=== PATIENT | male | born 1990 | race Caucasian/White ===

== ENCOUNTER → 2018-10-27 | Outpatient (CLI) | payer OTHER | LOC: COL.RAD 13:27 | DX: I87.1 Compression of vein (principal); R22.1 Localized swelling, mass and lump, neck | CPT/HCPCS: Q9967 ==

== ENCOUNTER → 2018-10-30 | Outpatient (CLI) | payer OTHER ==
[~2018-10-30] VITALS: Ht 177.8 cm; Wt 113.2 kg
[2018-10-30 09:00] VITALS: BP 144/95; PULSE 116
[2018-10-30 10:10] VITALS: BP 152/95; PULSE 95
== END ==
LOC: COL.RAD 08:49
DX: R59.0 Localized enlarged lymph nodes (principal); D72.829 Elevated white blood cell count, unspecified
CPT/HCPCS: 32108

== ENCOUNTER → 2018-11-16 | Outpatient (CLI) | payer SELFPAY | LOC: COL.VAS 13:28 | DX: Z01.810 Encounter for preprocedural cardiovascular examination (principal); C81.98 Hodgkin lymphoma, unspecified, lymph nodes of multiple sites; R18.8 Other ascites; I31.3 Pericardial effusion (noninflammatory); I51.7 Cardiomegaly ==

== ENCOUNTER 2018-11-20 08:06 | Day surgery (SDC) | payer OTHER ==
[~2018-11-20] VITALS: Ht 177.8 cm; Wt 104.0 kg
[2018-11-20] MEDS ORDERED: PREDNISONE20 MG PO (08:35)
[2018-11-20] MEDS ORDERED: ZYLOPRIM 300MG300 MG PO (08:35)
[2018-11-20] MEDS ORDERED: DAILY MULTIPLE1 T18 PO (08:36)
[2018-11-20 09:03] VITALS: BP 146/88; PULSE 100; TEMP 97.2
[2018-11-20 10:48] VITALS: BP 124/59; PULSE 86; TEMP 97.7
--- NOTE | 2018-11-20 10:48 | NUR ---
Patient arrives back to [facility] alert, denies nausea, reports some pain with muscle twitch in right shoulder, denies wanting pain medication. Patient monitor applied, vitals stable. Dressing clean/dry/intact. Dr Glover into talk with patient's spouse at this time.
[2018-11-20 11:00] VITALS: BP 126/76; PULSE 77
--- NOTE | 2018-11-20 11:05 | NUR ---
Patient tolerated juice and toast without any nausea. Vitals stable. Patient reports muscle twitch in right shoulder, pain 1/10, denies wanting any pain medication at this time. Patient reports that he is ready to go home.
[2018-11-20] MEDS ORDERED: NORCO 325 MG-51 TAB PO (11:10)
[2018-11-20 11:15] VITALS: BP 128/66; PULSE 83
--- NOTE | 2018-11-20 11:35 | NUR ---
Dismissal instructions gone over with patient and patient's spouse. Both verbalize understanding and all questions answered. Prescription given to patient's spouse.
--- NOTE | 2018-11-20 11:45 | NUR ---
Patient dismissed to patient enterance, to private vehicle spouse is driving. Patient and spouse thank staff for services.
== END 2018-11-20 11:45 | disposition home or self-care (01) ==
LOC: SDCO 08:06
DX: C81.92 Hodgkin lymphoma, unspecified, intrathoracic lymph nodes (principal); J90 Pleural effusion, not elsewhere classified; M54.5 Low back pain; Z82.49 Family history of ischemic heart disease and other diseases of the circulatory system
CPT/HCPCS: C1788; J0690; J1644; J2250; J2704; J3010; J7120

== ENCOUNTER 2018-11-23 02:48 | Observation (INO) | payer OTHER ==
[~2018-11-23] VITALS: Ht 177.8 cm; Wt 106.2 kg
[~2018-11-23 02:48] MED LIST: DAILY MULTIPLE1 T18 PO; NORCO 325 MG-51 TAB PO; PREDNISONE20 MG PO; ZYLOPRIM 300MG300 MG PO
[2018-11-23 03:29] LABS: HEMATOCRIT 45.4 % (42.0-52.0); HEMOGLOBIN 14.8 g/dl (13.5-18.0); MEAN CELL VOLUME 86 fl (80.0-100.0); MEAN CORPUSCULAR HEMOGLOBIN 28 pg (27.0-31.0); MEAN CORPUSCULAR HGB CONC 33 g/dl (33.0-37.0); MEAN PLATELET VOLUME 10.5 fl (7.4-10.4); PLATELET COUNT 318 K/mm3 (130-400); RED BLOOD COUNT 5.26 M/mm3 (4.20-5.60); REDCELL DISTRIBUTION WIDTH-CV 14.3 % (11.5-14.5)
[2018-11-23 03:39] LABS: ALBUMIN 4.1 gm/dL (3.5-5.0); BILIRUBIN,TOTAL 0.5 mg/dL (0.0-1.0); C-REACTIVE PROTEIN 2.4 mg/dL (0.0-0.9); CALCIUM 9.6 mg/dL (8.4-10.2); CREATININE, serum 1.22 (0.66-1.25); POTASSIUM 3.8 mmol/L (3.4-5.0); TOTAL PROTEIN 7.9 gm/dL (6.4-8.2)
[2018-11-23 03:46] LABS: BAND 4 % (0-10); EOSINOPHIL 13 % (0-4); LYMPHOCYTE 2 % (20.0-51.0); NEUTROPHILS 76 % (42.0-75.2); PLATELET ESTIMATE NORMAL (NORMAL)
[2018-11-23 07:56] LABS: COLLECTION METHOD CLEAN CATCH
--- NOTE | 2018-11-23 08:00 | NUR ---
PATIENT ARRIVED TO ROOM 323 FROM ED.
[2018-11-23 08:30] LABS: MUCOUS Present /lpf; PH 5 (5-8); SQUAMOUS EPITHELIAL 0-2 /hpf; URINE APPEARANCE Hazy; URINE BACTERIA None Seen /hpf; URINE BILIRUBIN Negative (NEGATIVE); URINE BLOOD 2+ (NEGATIVE); URINE CALCIUM OXALATE CRYSTAL Present /hpf; URINE COLOR Amber; URINE GLUCOSE Negative (NEGATIVE); URINE KETONE Negative (NEGATIVE); URINE LEUKOCYTE ESTERASE Negative (NEGATIVE); URINE NITRATE Negative (NEGATIVE); URINE PROTEIN(semi-quant) Negative (NEGATIVE); URINE RBC >50 /hpf; URINE UROBILINOGEN Negative (NEGATIVE)
[2018-11-23 08:35] VITALS: BP 132/72; PULSE 56; TEMP 98.3
[2018-11-23 09:08] VITALS: BP 132/72; PULSE 56; TEMP 98.3
--- NOTE | 2018-11-23 10:11 | NUR ---
MYKE met with the patient and patient's , Lori, to discuss discharge plan. The patient lives in [place] with his and a roommate. He reports independence with ADLs and does not use any DME. The patient receives primary care and his medications at [facility]. He reports no difficulties obtaining his meds. The patient does not have advanced directives, but he states that him and his are working on them. The patient plans to return home with his upon discharge. No additional needs at this time.
[2018-11-23 11:48] VITALS: BP 141/93; PULSE 64; TEMP 97.7
--- NOTE | 2018-11-23 12:00 | NUR ---
PATIENT IS A&O. VSS. BOWEL SOUNDS ACTIVE ALL FOUR QUADRANTS. PATIENT NPO FOR THORACENTESIS. PATIENT DENIES N/V AT THIS TIME. PATIENT STATES THAT HE ALWAYS FEELS SOB. ALL LEFT LUNG MCKINNEY CLEAR UPON AUSCULTATION. RIGHT UPPER LUNG FIELD CLEAR UPON AUSCULTATION. RIGHT MIDDLE AND LOWER LOBES DIMINISHED UPON AUSCULTATION. IV FLUIDS INFUSING TO LEFT AC VIA IV PUMP. CALL LIGHT WITHIN REACH. PATIENT DENIES ANY OTHER NEEDS AT THIS TIME.
--- NOTE | 2018-11-23 12:26 | NUR ---
PATIENT TAKEN FOR THORACENTESIS BY WHEELCHAIR. WILL WAIT FOR ARRIVAL BACK TO ROOM 323.
--- NOTE | 2018-11-23 13:19 | NUR ---
PATIENT ARRIVED BACK TO ROOM 323 VIA WHEELCHAIR FROM THORACENTESIS.
[2018-11-23 13:20] LABS: PLEURAL FLUID RBC 1000 /mm3 (0-0); PLEURAL FLUID WBC 853 /mm3
[2018-11-23 13:22] LABS: PLEURAL FLUID APPEARANCE CLEAR; PLEURAL FLUID COLOR YELLOW
[2018-11-23 13:26] LABS: TOTAL PROTEIN,PLEURAL FLUID 3.9 gm/dL
[2018-11-23 15:50] VITALS: BP 144/91; PULSE 69; TEMP 97.3
--- NOTE | 2018-11-23 19:45 | NUR ---
Pt. sitting up in bed watching TV at this time. Pt. is A&OX3, assessment complete. IV to lt. ac patent, IV fluids infusing per orders. Pt. denies pain at this time. Call light within reach.
[2018-11-24] VITALS (12 sets, daily range): BP systolic 119–146; BP diastolic 68–93; PULSE 49–79; TEMP 98–99.2
--- NOTE | 2018-11-24 05:58 | NUR ---
Pt. slept off and on through the night. Pt. reports pain to the abd that radiates to the lt. flank at a 8 on pain scale, gave pain meds per orders. Pt. denies further needs, call light within reach.
--- NOTE | 2018-11-24 08:00 | NUR ---
PATIENT IS SITTING UP IN BED IN HIS ON THE COMPUTER THIS MORNING. PATIENT IS A&OX4. BRADYCARDIA NOTED. VSS. BOWEL SOUNDS ACTIVE ALL FOUR QUADRANTS. PATIENT IS NPO FOR HIS PROCEDURE THIS AFTERNOON. PATIENT DENIES COMPLAINTS OF N/V. PATIENT STATES THAT HE FEELS WEAK, BUT NO MORE THAN HIS NORMAL. PATIENT HAS SOB WITH ACTIVITY. RIGHT LOWER LUNG LOBE DIMINISHED UPON AUSCULTATION. ALL OTHER LUNG MCKINNEY CLEAR UPON AUSCULTATION. PATIENT DENIES A PRODUCTIVE COUGH. BACK THORACENTESIS SITE DRESSED WITH A BANDAID AND IS CD&I. PORTACATH PLACEMENT SITE TO RIGHT CHEST WITH EDGES WELL APPROXIMATED AND STERI STRIPS IN PLACE, OTHERWISE INCISION IS APPLICATIONS SALES CONSULTANT WITH ECCHYMOSIS AROUND SITE NOTED. POSITIVE PEDAL PULSES EQUAL BILATERALLY. IV FLUIDS INFUSING TO LEFT AC IV VIA PUMP. CALL LIGHT WITHIN REACH. PATIENT DENIES ANY OTHER NEEDS AT THIS TIME.
[2018-11-24 08:02] LABS: HEMOGLOBIN 13.1 g/dl (13.5-18.0); MEAN CELL VOLUME 86 fl (80.0-100.0); MEAN CORPUSCULAR HEMOGLOBIN 28 pg (27.0-31.0); MEAN CORPUSCULAR HGB CONC 33 g/dl (33.0-37.0); MEAN PLATELET VOLUME 10.4 fl (7.4-10.4); RED BLOOD COUNT 4.68 M/mm3 (4.20-5.60); REDCELL DISTRIBUTION WIDTH-CV 14.4 % (11.5-14.5)
[2018-11-24 08:03] LABS: PLATELET COUNT 214 K/mm3 (130-400)
[2018-11-24 08:12] LABS: CALCIUM 8.5 mg/dL (8.4-10.2); CREATININE, serum 1.37 (0.66-1.25); MAGNESIUM 1.7 mg/dL (1.6-2.3); POTASSIUM 3.6 mmol/L (3.4-5.0)
[2018-11-24 08:51] LABS: BAND 8 % (0-10); EOSINOPHIL 32 % (0-4); LYMPHOCYTE 6 % (20.0-51.0); NEUTROPHILS 49 % (42.0-75.2)
[2018-11-24 08:52] LABS: PLATELET ESTIMATE NORMAL (NORMAL)
--- NOTE | 2018-11-24 10:38 | NUR ---
PATIENT CONSENT FORM SIGNED AND ON PATIENT CHART FOR PROCEDURE THIS AFTERNOON.
--- NOTE | 2018-11-24 12:18 | NUR ---
First visit from the garment finisher. No needs right now.
--- NOTE | 2018-11-24 14:19 | NUR ---
ALL PATIENT PRE-OP MEDICATIONS GIVEN. NS TO GRAVITY FLOW TUBING AND INFUSING TO LEFT AC IV. PATIENT TAKEN TO PERIOP VIA CART BY LAURITA COLLIER. WILL WAIT FOR PATIENT ARRIVAL BACK TO ROOM 323 POST-OP.
--- NOTE | 2018-11-24 16:25 | NUR ---
PATIENT ARRIVED BACK TO ROOM 323 VIA CART FROM PACU. PATIENT IS A&O. POST-OP VSS. TEMP OF 99.2 NOTED. PATIENT GIVEN 1 TABLET OF NORCO FOR ELEVATED TEMP AND PAIN. DINNER TRAY ORDERED. PRESENT AT THE BEDSIDE. CALL LIGHT WITHIN REACH. PATIENT DENIES ANY OTHER NEEDS AT THIS TIME.
--- NOTE | 2018-11-24 18:53 | NUR ---
REPORT GIVEN TO LAURITA BILLINGSLEY.
--- NOTE | 2018-11-24 19:48 | NUR ---
Resting in bed. Assessment complete. Right lower lobe diminished otherwise clear. Heart sounds normal. Bowels active x4. Pulses strong throughout. No edema noted. Throacentesis site covered with bandaide. Right chest port a cath bruising present. Steri strips in place and open to air. Left AC IV without complications. Reports 2/10 in left lower quad pain. Denies need for intervention at this time. Denies other needs. Call light in reach.
[2018-11-25] VITALS: BP 123/72; PULSE 46; TEMP 98.1
--- NOTE | 2018-11-25 01:00 | NUR ---
Resting in bed. Denies needs. Call light in reach.
[2018-11-25 03:41] VITALS: BP 125/69; PULSE 48; TEMP 98.3
--- NOTE | 2018-11-25 04:00 | NUR ---
Resting in bed. Denies needs. Denies pain. Call light in reach.
[2018-11-25 07:02] LABS: BASO % 0.2 % (0.0-2.0); EOS # 2.9 (0.0-0.7); EOS % 17.4 % (0-4.0); GRAN # 11.8 (1.4-6.5); GRAN % 71.5 % (42.2-75.2); HEMATOCRIT 42.5 % (42.0-52.0); HEMOGLOBIN 13.9 g/dl (13.5-18.0); LYMPH # 0.5 (1.2-3.4); LYMPH % 2.9 % (20.0-51.0); MEAN CELL VOLUME 87 fl (80.0-100.0); MEAN CORPUSCULAR HEMOGLOBIN 28 pg (27.0-31.0); MEAN CORPUSCULAR HGB CONC 33 g/dl (33.0-37.0); MEAN PLATELET VOLUME 10.5 fl (7.4-10.4); MONO # 1.2 (0.1-0.6); MONO % 7.2 % (1.7-9.3); PLATELET COUNT 281 K/mm3 (130-400); RED BLOOD COUNT 4.89 M/mm3 (4.20-5.60); REDCELL DISTRIBUTION WIDTH-CV 14.3 % (11.5-14.5)
[2018-11-25 07:08] LABS: ALBUMIN 3.1 gm/dL (3.5-5.0); BILIRUBIN,TOTAL 0.3 mg/dL (0.0-1.0); CALCIUM 8.6 mg/dL (8.4-10.2); CREATININE, serum 1.11 (0.66-1.25); MAGNESIUM 1.9 mg/dL (1.6-2.3); POTASSIUM 4.1 mmol/L (3.4-5.0); TOTAL PROTEIN 6.3 gm/dL (6.4-8.2)
--- NOTE | 2018-11-25 07:12 | NUR ---
Patient had uneventful night. Resting in bed this AM. Report given to LAURITA Gregory
[2018-11-25 08:24] VITALS: BP 117/73; PULSE 53; TEMP 98.2
[2018-11-25] MEDS ORDERED: NORCO 325 MG-51 TAB PO (09:44)
--- NOTE | 2018-11-25 11:05 | NUR ---
Patient alert and oriented, answers questions appropriately. See assessment. No c/o urinary frequency, burning or hesitancy. Voiding adequate amounts. No other c/o at this time.
[2018-11-25 11:47] VITALS: BP 147/66; PULSE 71; TEMP 97.9
[2018-11-25] MEDS ORDERED: CIPRO 500MG TA500 MG PO (15:30)
--- NOTE | 2018-11-25 16:29 | NUR ---
Discharge instructions reviewed with patient and spouse, verbalized understanding. Discharged via wheelchair to auto/home with spouse at 1620.
== END 2018-11-25 16:20 | disposition home or self-care (01) ==
LOC: COL.ER 02:48 → SURG 06:42
PROVIDERS: Emergency Medicine; ADMIT Internal Medicine
DX: N20.1 Calculus of ureter (principal); J90 Pleural effusion, not elsewhere classified; C81.90 Hodgkin lymphoma, unspecified, unspecified site; I31.3 Pericardial effusion (noninflammatory); J98.11 Atelectasis; Z79.52 Long term (current) use of systemic steroids; E66.01 Morbid (severe) obesity due to excess calories
CPT/HCPCS: 99239; A4216; C1769; C2617; G0378; J0690; J0696; J1100; J1170; J1650; J1720; J1885; J2270; J2405; J2550; J2704; J2765; J3010; J7030; Q9967